=== PATIENT | female | born 1985 | race African-American/Black ===

== ENCOUNTER 2017-12-21 07:47 | Emergency (ER) | END 2017-12-21 09:10 | disposition home or self-care (01) ==

== ENCOUNTER 2017-12-22 21:49 | Emergency (ER) | END 2017-12-23 01:01 | disposition home or self-care (01) ==

== ENCOUNTER → 2018-01-07 | Outpatient (CLI) | END | disposition home or self-care (01) ==

== ENCOUNTER 2018-04-15 10:23 | Inpatient (IN) | END 2018-04-19 21:35 | disposition home or self-care (01) | DRG 766 ==